=== PATIENT | female | born 1950 | race Two or more races ===

== ENCOUNTER 2023-12-21 21:20 | Emergency (ER) | payer OTHER ==
[~2023-12-21] VITALS: Ht 144.8 cm; Wt 54.4 kg
[2023-12-21] MEDS ORDERED: COZAAR50 MG PO (21:40)
[2023-12-21] MEDS ORDERED: CARVEDILOL6.25 MG PO (21:41)
[2023-12-21] MEDS ORDERED: AMLODIPINE-OLM1 EAC2 PO (21:42)
[2023-12-21] MEDS ORDERED: LOSARTAN POTASSIUM 50 MG TABLET PO STA (22:18)
[2023-12-21] MEDS ORDERED: CARVEDILOL 6.25 MG TABLET PO SCH (22:30)
== END 2023-12-21 22:39 | disposition home or self-care (01) ==
LOC: ER 21:20
DX: I10 Essential (primary) hypertension (principal)

== ENCOUNTER 2023-12-23 17:08 | Emergency (ER) | payer OTHER ==
[~2023-12-23] VITALS: Ht 144.8 cm; Wt 54.4 kg
[~2023-12-23 17:08] MED LIST: AMLODIPINE-OLM1 EAC2 PO; CARVEDILOL6.25 MG PO; COZAAR50 MG PO
[2023-12-23] MEDS ORDERED: CLONIDINE HCL 0.1 MG TABLET PO ONE (19:00)
[2023-12-23 19:47] LABS: ALBUMIN 4.3 gm/dL (3.4-5.0); BILIRUBIN TOTAL 0.87 mg/dL (0.3-1.2); CALCIUM 9.9 mg/dL (8.5-10.1); CREATININE SERUM 0.79 mg/dL (0.55-1.02); GFR 71.74; GLOBULINA 4.3 G/DL (2.4-3.5); POTASSIUM 4.73 mEq/L (3.5-5.1); TOTAL PROTEIN 8.6 gm/dL (6.4-8.2)
[2023-12-23] MEDS ORDERED: THIAMINE HCL 100 MG/ML 2 ML VIAL IV ONE (21:15)
[2023-12-23] MEDS ORDERED: 0.9 % SODIUM CHLORIDE 500 ML IV ONE (21:15)
== END 2023-12-24 03:17 | disposition home or self-care (01) ==
LOC: ER 17:08
PROVIDERS: Emergency Medicine
DX: I10 Essential (primary) hypertension (principal)

== ENCOUNTER → 2024-01-11 | Emergency (ER) | payer OTHER ==
[~2024-01-11] VITALS: Ht 154.9 cm; Wt 62.1 kg
[~2024-01-11] MED LIST changes: +KAPVAY0.1 MG
[2024-01-11 18:20] LABS: HEMOGLOBIN 12.7 g/dL (12.0-15.00); MEAN CELL VOLUME 89.8 fL (80.00-100.00); MEAN CORPUSCULAR HEMOGLOBIN 31.6 pg (27.00-32.0); MEAN CORPUSCULAR HGB CONC 35.2 g/dl (32.0-36.0); PLATELET COUNT 226 K/uL (150-450); RED BLOOD COUNT 4.02 M/uL (4.00-6.00); RED CELL DISTRIBUTION WIDTH 13.7 % (11.5-14.5)
[2024-01-11 18:43] LABS: CALCIUM 9.5 mg/dL (8.5-10.1); CREATININE SERUM 1.02 mg/dL (0.55-1.02); GFR 53.42; POTASSIUM 4.79 mEq/L (3.5-5.1)
== END | disposition home or self-care (01) ==
LOC: ER 15:03
PROVIDERS: General Practice
DX: I10 Essential (primary) hypertension (principal); Z20.822 Contact with and (suspected) exposure to COVID-19